=== PATIENT | male | born 1985 | race Caucasian/White ===

== ENCOUNTER 2023-05-20 23:25 | Emergency (ER) | payer OTHER, SELFPAY ==
[2023-05-20 23:30] VITALS: BP 128/79
[2023-05-20 23:32] VITALS: BP 128/79
[2023-05-20 23:36] VITALS: BMI 24.8
[2023-05-20] MEDS: ATIVAN 1 MG PO (23:45)
--- NOTE | 2023-05-20 23:54 | ED.GENMED ---
History of Present Illness
General
Chief Complaint: Anxiety
Source: patient
Exam Limitations: none
Time Seen by Provider: 05/20/23 23:28
Travel History
Have you had any contact with someone who has COVID-19?: No
Do you have any symptoms of coronavirus? Fever > 100 degrees, chills, cough, shortness of breath, sore throat, loss of taste or smell, muscle aches, or headache?: No
History of Present Illness
History of Present Illness:
37-year-old male history of anxiety, recently started on Paxil previously prescribed medical marijuana which he continues to use, for anxiety denies any other drugs or alcohol, went to bed tonight woke up feeling nauseous and anxious EMS was called
here he is tearful, hyperventilating, denies suicidal homicidal thoughts, not hallucinating he has a PCP or psychiatrist, he is with children, he is employed
Past History
Past History
ED Past Medical History: GERD, Psychiatric and Other (Palpitations); Negative HTN, Hypercholesterolemia, IDDM or NIDDM
ED Past Surgical History: None
Social History
Tobacco: Non-smoker
Alcohol: Occasional
Drug: None
Personal:
Living: with family
Employment: Employed
Family History
Family History: Cancer (Pancreatic cancer); Negative Early CAD or CAD
Review of Systems
Review of Systems
All Other Systems: ROS reviewed and negative except as documented in HPI and ROS
Constitutional: Reports sleep disturbance
EENT: Reports no symptoms
Respiratory: Reports no symptoms
Cardiac: Reports palpitations
ABD/GI: Reports no symptoms
: Reports no symptoms
Musculoskeletal: Reports no symptoms
Psychiatric: Reports anxiety; Denies depression, suicidal or hallucinations
Phy Exam
Physical Exam
Physical Exam:
Physical Exam
General: 37-year-old male tearful hyperventilating
Neck: No jaundice
Heart: Regular
Lungs: no acute respiratory distress.
Neuro: alert and oriented. no focal neurological deficits
Skin: no rash
Psychiatric: Anxious tearful cooperative denies suicidal thoughts not hallucinating
Extremities: no edema
Course
Orders/Labs/Results
Orders:
Orders
05/20/23 23:42
Lorazepam [Ativan] 1 mg PO NOW STA
05/20/23 23:46
Lorazepam [Ativan] 1 mg .ROUTE .STK-MED ONE
Vital Signs
Initial and Last Documented VS:
Initial Vital Signs
BP
128/79
05/20/23 23:30
Last Documented Vital Signs
Temp Pulse Resp BP Pulse Ox
97.8 F 74 15 115/77 100
05/20/23 23:32 05/21/23 00:30 05/21/23 00:30 05/21/23 00:00 05/21/23 00:15
MDM/Problems Addressed
Differential Diagnosis Includes:
Anxiety, toxic metabolic, medication effect
MDM/Problems Addressed:
Anxiety panic
Chronic conditions affecting care:
Anxiety
*Pulse Oximetry
Patient hypoxic: no
*EKG
Interpreted by ED Provider?: Yes
Interpretation: normal
Comparison EKG: no comparison EKG present
Heart Rate: 78
Rate: normal
Rhythm: sinus
Ischemia: other (EKG from EMS)
*Information Specialist Interpretation
Rate: normal
Interpretation: normal
Heart Rate: 78
Rhythm: sinus
*Critical Care Note
Total Time (30-74mins, 75-104mins- exclusive of procedures): Not Applicable
Update Note
Update Note:
1 AM patient resting comfortably mental status appears to be clear now no longer tearful, reviewed the clinical suspicion his EKG with him, will discharge with a short course of benzodiazepines, I have asked him to call his prescribing physicians
tomorrow to discuss Paxil dosing
ED Attending Note
-
Portions of this chart may have been created with voice recognition software.� Occasional wrong word or��sound alike� substitutions may have occurred due to the inherent limitations of voice recognition software.
Discharge Plan
Departure
Patient Disposition: Home (Routine Discharge)
Date of Disposition: 05/21/23
Time of Disposition: 00:54
Patient with high blood pressure during this ER visit?: No
Condition: Good
Discharge Problem:
Panic attack
Instructions: Panic Disorder (DC), Anxiety, Adult (DC)
Prescriptions:
No Action
doxycycline hyclate 100 MG capsule
100 mg PO Q12
fluoxetine 20 MG capsule
20 mg PO DAILY
sucralfate [Carafate] 100 mg/mL suspension
10 ml PO BID 5 Days Qty: 100 0RF
Referrals:
Stefan Seo, DO [Family Provider] -
Interventions
Interventions:
*Risk Screen - Suicide Last Done: 05/20/23 23:32
*General Assessment Last Done: 05/20/23 23:32
*Neglect/Abuse Screening Last Done: 05/20/23 23:32
ED-Psychological Assessment Last Done: 05/20/23 23:38
Discharge Date and Time
Print Language: CROATIAN
[2023-05-21] VITALS: BP 115/77
[2023-05-21 01:00] VITALS: BP 112/76
== END 2023-05-21 01:06 | disposition home or self-care (01) ==
LOC: EMR 23:25
PROVIDERS: EMERGENCY PHYSICIAN Emergency Medicine; FAMILY PHYSICIAN Family Medicine
DX: F41.0 Panic disorder [episodic paroxysmal anxiety] (principal); F41.9 Anxiety disorder, unspecified; K21.9 Gastro-esophageal reflux disease without esophagitis; R00.2 Palpitations
CPT/HCPCS: 99282